=== PATIENT | female | born 1970 | race Hispanic/Latino ===

== ENCOUNTER 2022-08-12 00:25 | Inpatient (IN) | payer OTHER ==
[~2022-08-12] VITALS: Ht 152.4 cm; Wt 59.1 kg
[2022-08-12] MEDS ORDERED: ONDANSETRON HCL INJ 2MG/ML 2ML 2 MG/ML VIAL IV STA (01:17)
[2022-08-12] MEDS ORDERED: Morphine 4mg INJECTION 4 MG/ML INJ IV ONE (01:30)
[2022-08-12] MEDS ORDERED: SODIUM CHLORIDE 0.9% 1000ML 1,000 ML IV ONE (01:30)
[2022-08-12 01:44] LABS: BASOPHILS % 0.2 % (0.0-1.0); EOSINOPHILS # (AUTO) 0.1 (0.0-0.4); EOSINOPHILS % 0.6 % (0.0-6.0); HEMATOCRIT 40.7 % (34.2-44.1); HEMOGLOBIN 13.9 g/dL (12.0-16.0); LYMPHOCYTES # (AUTO) 1.9 (1.0-3.2); LYMPHOCYTES % 13.5 % (18.0-39.1); MEAN CORPUSCULAR HEMOGLOBIN 30.3 pg (28-32); MEAN CORPUSCULAR HGB CONC 34.2 g/dL (31-35); MEAN CORPUSCULAR VOLUME 88.7 fL (81-99); MONOCYTES # (AUTO) 0.6 (0.2-0.8); NEUTROPHILS # (AUTO) 11.3 (2.1-6.9); NEUTROPHILS % 81.5 % (38.7-80.0); PLATELET COUNT 217 x10e3/uL (140-360); RED BLOOD COUNT 4.59 x10e6/uL (3.6-5.1); RED CELL DISTRIBUTION WIDTH 12.1 % (11.7-14.4)
[2022-08-12 01:45] LABS: CLARITY,URINE CLEAR (CLEAR); COLOR,URINE YELLOW (YELLOW); KETONES,URINE 1+ (NEGATIVE); LEUKOCYTE ESTERASE ,URINE SMALL (NEGATIVE); NITRITE,URINE NEGATIVE (NEGATIVE); PROTEIN,URINE DIPSTICK NEGATIVE (NEGATIVE); URINE UROBILINOGEN 0.2 mg/dL (0.2 - 1)
[2022-08-12 01:54] LABS: BACTERIA,URINE RARE /HPF; EPITHELIAL CELLS,URINE MODERATE /LPF; RBC,URINE 0-5 /HPF (0-5)
[2022-08-12 02:07] LABS: ALBUMIN 4.3 g/dL (3.5-5.0); ALBUMIN/GLOBULIN RATIO 1.2 (0.8-2.0); ANION GAP 13.7 mmol/L (8-16); CALCIUM 9.4 mg/dL (8.4-10.2); CREATININE, SERUM 0.86 mg/dL (0.57-1.11); POTASSIUM 3.7 mmol/L (3.5-5.1)
[2022-08-12 02:13] LABS: CREATINE KINASE MB 2.5 ng/mL (0-5.0)
[2022-08-12] MEDS ORDERED: SODIUM CHLORIDE 0.9% 1000ML 1,000 ML ONE (03:54)
[2022-08-12] MEDS ORDERED: BENZOCAINE/TETRACAINE/BUTAMBEN AERO SPRAY 56 GM CAN TOP ONE (04:00)
[2022-08-12] MEDS ORDERED: SODIUM CHLORIDE 0.9% 1000ML 1,000 ML IV SCH ×2 (04:00→04:30)
[2022-08-12] MEDS ORDERED: Morphine 4mg INJECTION 4 MG/ML INJ IV PRN (04:30)
[2022-08-12] MEDS ORDERED: ONDANSETRON HCL INJ 2MG/ML 2ML 2 MG/ML VIAL IV PRN (04:30)
[2022-08-12] MEDS: D5NS/KCL 20MEQ 1,000 ML IV SCH ×3 (10:39→22:32)
[2022-08-12 13:15] VITALS: BP 122/74; PULSE 64; RESP 18; TEMP 98.1; O2SAT 100
[2022-08-12 13:44] VITALS: BP 120/77; PULSE 64; RESP 20; TEMP 98.1; O2SAT 100
[2022-08-12] MEDS: ACETAMINOPHEN 1000 MG/100 ML IV PRN ×2 (14:10→22:22)
[2022-08-12] MEDS ORDERED: LEVOTHYROXINE88 MCG PO (14:16)
[2022-08-12 17:09] VITALS: BP 106/63; PULSE 60; RESP 16; TEMP 98.1; O2SAT 100
[2022-08-12] MEDS: ENOXAPARIN SOD INJ 40 MG/0.4 ML SYR SC SCH (18:16)
[2022-08-12 20:00] VITALS: BP 115/70; PULSE 62; RESP 16; TEMP 97.7; O2SAT 100
[2022-08-12] MEDS: BISACODYL 10 MG SUPP PR SCH (20:23)
[2022-08-12 21:00] VITALS: BP 115/70; PULSE 62; RESP 16; TEMP 97.7; O2SAT 100
[2022-08-13] VITALS (9 sets, daily range): BP systolic 101–114; BP diastolic 67–79; PULSE 57–71; RESP 16–18; TEMP 97.4–98.2; O2SAT 99–100
[2022-08-13 06:04] LABS: BASOPHILS % 0.6 % (0.0-1.0); EOSINOPHILS # (AUTO) 0.1 (0.0-0.4); EOSINOPHILS % 2.3 % (0.0-6.0); HEMATOCRIT 35.1 % (34.2-44.1); HEMOGLOBIN 11.3 g/dL (12.0-16.0); LYMPHOCYTES # (AUTO) 2.2 (1.0-3.2); LYMPHOCYTES % 44.9 % (18.0-39.1); MEAN CORPUSCULAR HGB CONC 32.2 g/dL (31-35); MEAN CORPUSCULAR VOLUME 93.1 fL (81-99); MONOCYTES # (AUTO) 0.4 (0.2-0.8); MONOCYTES % 8.8 % (4.4-11.3); NEUTROPHILS # (AUTO) 2.1 (2.1-6.9); NEUTROPHILS % 43.4 % (38.7-80.0); PLATELET COUNT 183 x10e3/uL (140-360); RED BLOOD COUNT 3.77 x10e6/uL (3.6-5.1); RED CELL DISTRIBUTION WIDTH 12.5 % (11.7-14.4)
[2022-08-13 06:35] LABS: ALBUMIN/GLOBULIN RATIO 1.1 (0.8-2.0); CALCIUM 8.2 mg/dL (8.4-10.2); CREATININE, SERUM 0.8 mg/dL (0.57-1.11)
[2022-08-13] MEDS: BISACODYL 10 MG SUPP PR SCH (08:33)
[2022-08-13] MEDS: D5NS/KCL 20MEQ 1,000 ML IV SCH ×2 (08:34→16:43)
[2022-08-13] MEDS: ENOXAPARIN SOD INJ 40 MG/0.4 ML SYR SC SCH (17:04)
[2022-08-14] VITALS (7 sets, daily range): BP systolic 99–118; BP diastolic 61–79; PULSE 57–67; RESP 15–19; TEMP 97.5–98.1; O2SAT 100
[2022-08-14] MEDS: D5NS/KCL 20MEQ 1,000 ML IV SCH ×4 (00:32→21:38)
[2022-08-14] MEDS: LEVOTHYROXINE SODIUM 88 MCG TAB PO SCH (11:28)
[2022-08-14] MEDS: METOCLOPRAMIDE HCL 10 MG/2ML VIAL IV SCH ×3 (11:28→21:37)
[2022-08-14] MEDS: ENOXAPARIN SOD INJ 40 MG/0.4 ML SYR SC SCH (16:30)
[2022-08-15 01:42] VITALS: BP 100/69; PULSE 50; RESP 18; TEMP 97.7; O2SAT 100
[2022-08-15 05:31] VITALS: BP 105/67; PULSE 62; RESP 17; TEMP 97.8; O2SAT 98
[2022-08-15] MEDS: LEVOTHYROXINE SODIUM 88 MCG TAB PO SCH (05:55)
[2022-08-15 08:00] VITALS: BP 109/69; PULSE 58; RESP 17; TEMP 97.8; O2SAT 100
[2022-08-15 08:19] VITALS: BP 109/69; PULSE 58; RESP 17; TEMP 97.8; O2SAT 100
[2022-08-15] MEDS: METOCLOPRAMIDE HCL 10 MG/2ML VIAL IV SCH ×4 (08:45→21:53)
[2022-08-15 15:35] VITALS: BP 107/68; PULSE 60; RESP 17; TEMP 97.7; O2SAT 100
[2022-08-15] MEDS: ENOXAPARIN SOD INJ 40 MG/0.4 ML SYR SC SCH (17:31)
[2022-08-15 20:00] VITALS: BP 114/75; PULSE 71; RESP 18; TEMP 97.9; O2SAT 99
[2022-08-15] MEDS ORDERED: DONNATAL/LIDOCAINE/MAALOX 30 ML SUSP PO ONE ×2 (22:30→23:15)
[2022-08-16] VITALS (7 sets, daily range): BP systolic 98–114; BP diastolic 59–79; PULSE 56–67; RESP 16–18; TEMP 97.5–98; O2SAT 97–100
[2022-08-16] MEDS: LEVOTHYROXINE SODIUM 88 MCG TAB PO SCH (06:02)
[2022-08-16] MEDS: D5NS/KCL 20MEQ 1,000 ML IV SCH ×2 (06:05→16:26)
[2022-08-16] MEDS: METOCLOPRAMIDE HCL 10 MG/2ML VIAL IV SCH ×4 (08:45→21:28)
[2022-08-16] MEDS ORDERED: FENTANYL CITRATE/PF 100MCG/2 ML INJ ONE (13:31)
[2022-08-17] VITALS: BP 96/58; PULSE 68; RESP 18; TEMP 98.1; O2SAT 98
[2022-08-17 04:00] VITALS: BP 103/64; PULSE 56; RESP 18; TEMP 97.4; O2SAT 99
[2022-08-17] MEDS: D5NS/KCL 20MEQ 1,000 ML IV SCH (05:15)
[2022-08-17] MEDS: LEVOTHYROXINE SODIUM 88 MCG TAB PO SCH (05:15)
[2022-08-17] MEDS: METOCLOPRAMIDE HCL 10 MG/2ML VIAL IV SCH (07:58)
[2022-08-17 08:20] VITALS: BP 103/65; PULSE 66; RESP 18; TEMP 97.9; O2SAT 99
[2022-08-17 09:00] VITALS: BP 103/65; PULSE 66; RESP 18; TEMP 97.9; O2SAT 99
== END 2022-08-17 10:41 | disposition home or self-care (01) | DRG 390 ==
LOC: ER 00:31 → ERHOLD 04:20 → MED/SURG2 12:46
PROVIDERS: ADMIT Internal Medicine; ATTEND Internal Medicine
PROC: 0D9670Z Drainage of Stomach with Drainage Device, Via Natural or Artificial Opening (ICD-10-PCS; principal; 2022-08-12)
PROC: 0DB78ZX Excision of Stomach, Pylorus, Via Natural or Artificial Opening Endoscopic, Diagnostic (ICD-10-PCS; 2022-08-16)
DX: K56.52 Intestinal adhesions [bands] with complete obstruction (principal); E03.9 Hypothyroidism, unspecified; K44.9 Diaphragmatic hernia without obstruction or gangrene; K29.70 Gastritis, unspecified, without bleeding; K52.9 Noninfective gastroenteritis and colitis, unspecified; D64.9 Anemia, unspecified; E86.0 Dehydration; Z90.49 Acquired absence of other specified parts of digestive tract
CPT/HCPCS: 0223U; 36415; 43239; 74018; 74019; 74022; 74176; 74246; 74248; 80053; 81001; 81025; 82550; 82553; 83690; 84484; 85025; 88304; 88305; 88312; 88342; 93005; 96361; 99285; J1650; J2270; J2405; J2543; J2765; J7030